=== PATIENT | female | born 2000 | race Caucasian/White ===

== ENCOUNTER 2022-01-20 11:27 | Emergency (ER) | payer BC ==
[~2022-01-20] VITALS: Ht 167.6 cm; Wt 56.8 kg
[2022-01-20 11:34] VITALS: TEMP 98.2
[2022-01-20 12:07] VITALS: BP 122/63
[2022-01-20 12:39] VITALS: PULSE 93
== END 2022-01-20 12:39 | disposition home or self-care (01) ==
LOC: COL.ER 11:27
DX: I95.1 Orthostatic hypotension (principal); I49.8 Other specified cardiac arrhythmias; G90.1 Familial dysautonomia [Riley-Day]